=== PATIENT | male | born 1955 | race Two or more races ===

== ENCOUNTER → 2024-10-26 | Outpatient (CLI) | payer MEDICARE, SELFPAY ==
--- NOTE | 2024-10-26 | XR_ITS ---
Examination: Shoulder bilateral, 6 views Technique: Shoulder AP internal rotation, AP external rotation, Y view each shoulder total 6 views Exam date and time :October 26, 2024 1258 hours INDICATIONS: Bilateral shoulder pain decreased range of motion beginning 4 years ago. FINDINGS: Moderate osteopenia Bilateral advanced narrowing glenohumeral joints No fracture or shoulder dislocation Right shoulder calcific tendinitis IMPRESSION: Bilateral advanced narrowing glenohumeral joints Minimal right shoulder calcific tendinitis
== END | disposition home or self-care (01) ==
PROVIDERS: PCP Internal Medicine; Referring Provider Nurse Practitioner Family; Visit Provider Nurse Practitioner Family
DX: M75.31 Calcific tendinitis of right shoulder (principal); M25.812 Other specified joint disorders, left shoulder; M25.811 Other specified joint disorders, right shoulder
CPT/HCPCS: 73030

== ENCOUNTER → 2025-07-12 | Outpatient (CLI) | payer OTHER, MEDICAID, SELFPAY ==
--- NOTE | 2025-07-12 13:52 | XR_ITS ---
Examination: PA lateral chest 2 views TECHNIQUE: Upright PA lateral chest 2 views Date and time: July 12, 2025 1401 hours, comparison August 01, 2025 INDICATIONS: Diagnosis coccidiomycosis FINDINGS: Normal heart size No pneumonia or pulmonary edema Moderate osteopenia IMPRESSION: No active disease
== END | disposition home or self-care (01) ==
PROVIDERS: PCP Nurse Practitioner Primary Care
DX: R05.1 Acute cough (principal)
CPT/HCPCS: 71046